=== PATIENT | male | born 1930 | race Caucasian/White ===

== ENCOUNTER 2016-06-08 10:17 | Inpatient (IN) | payer MEDICARE, OTHER ==
[~2016-06-08] VITALS: Ht 177.8 cm; Wt 90.3 kg
[~2016-06-08 10:17] MED LIST: ASPI-650 PO; ATOR10TA9 PO; ATOR40TA PO; ATOR40TA78 PO; CELE200C PO; CIPR2.5D EACHEYE; CYCL1DRO EACHEYE; FINA5TAB4 PO; HYDR-3138 PO; LATA2.5D3 EACHEYE; MELA5TAB PO; METF500T4 PO; TAMS-11 PO; TAMS0.4C2 PO; [UNRECOGNIZED DRUG - OTHER] PO
[2016-06-08] MEDS ORDERED: METF500T4 PO ×2 (10:40)
[2016-06-08] MEDS ORDERED: SODIUM CHLORIDE 0.9% 1,000 ML IV ONE (10:46)
[2016-06-08 11:20] LABS: HEMOGLOBIN 14.4 g/dL (13.7-18.0)
[2016-06-08 11:33] LABS: ASPARTATE AMINO TRANSFERASE 18 U/L (15-37); BLOOD UREA NITROGEN 10 mg/dL (7-18)
[2016-06-08] MEDS ORDERED: CEFTRIAXONE PMX 1GM/50ML 50 ML ONE (12:53)
[2016-06-08] MEDS ORDERED: CEFTRIAXONE PMX 1GM/50ML 50 ML IV ONE (13:00)
[2016-06-08] MEDS ORDERED: MORPHINE SULFATE 4 MG/ML, 1ML IVPush PRN (14:30)
[2016-06-08] MEDS ORDERED: CEFTRIAXONE PMX 1GM/50ML 50 ML IV SCH (14:30)
[2016-06-08] MEDS ORDERED: ONDANSETRON 2MG/ML, 2ML IVP PRN (14:30)
[2016-06-08] MEDS ORDERED: ENALAPRILAT 1.25 MG/ML, 2ML IVPush PRN (14:30)
[2016-06-08] MEDS ORDERED: HYDROcodone/APAP 5/325 TABLET PO PRN (14:30)
[2016-06-08] MEDS ORDERED: GUAIFENESIN/DM 200-20MG, 10ML UDC PO PRN (14:30)
[2016-06-08 15:12] VITALS: BP 139/76
[2016-06-08 15:12] LABS: IS PT STATUS REG ER OR PRE ER? NO
[2016-06-08] MEDS: SODIUM CHLORIDE 0.9% 1,000 ML IV SCH (16:08)
[2016-06-08] MEDS: INSULIN REGULAR 100 UNITS/ML, 3ML VIAL SQ-INSULIN SCH ×2 (18:30→21:00)
[2016-06-08 20:11] VITALS: BP 123/56
[2016-06-08 20:41] LABS: IS PT STATUS REG ER OR PRE ER? NO
[2016-06-08] MEDS: FAMOTIDINE 20 MG TABLET PO SCH (20:52)
[2016-06-08] MEDS: ATORVASTATIN 40 MG TABLET PO SCH (20:52)
[2016-06-08] MEDS: MELATONIN 5 MG TABLET PO SCH (21:00)
[2016-06-08] MEDS: LATANOPROST OPHTH 0.005%, 2.5ML EACHEYE SCH (22:00)
[2016-06-09 03:05] VITALS: BP 136/61
[2016-06-09 05:47] LABS: HEMOGLOBIN 13.5 g/dL (13.7-18.0)
[2016-06-09 05:58] LABS: BLOOD UREA NITROGEN 7 mg/dL (7-18)
[2016-06-09 08:51] VITALS: BP 132/65
[2016-06-09] MEDS: INSULIN REGULAR 100 UNITS/ML, 3ML VIAL SQ-INSULIN SCH ×4 (08:58→19:57)
[2016-06-09] MEDS: TEMPLATE NON-FORMULARY MED. (Cyclosporine (Restasis) 1 DROP) EACHEYE SCH (09:00)
[2016-06-09] MEDS: MULTIVITAMIN 1 TABLET PO SCH (09:01)
[2016-06-09] MEDS: FAMOTIDINE 20 MG TABLET PO SCH ×2 (09:01→20:10)
[2016-06-09] MEDS: SENNA/DOCUSATE TABLET PO SCH (10:29)
[2016-06-09] MEDS: ACETAMINOPHEN 325 MG TABLET PO PRN (10:29)
[2016-06-09] MEDS ORDERED: LORazepam 2 MG/ML, 1ML IVPush ONE ×2 (11:30→17:00)
[2016-06-09] MEDS ORDERED: CEFTRIAXONE PMX 1GM/50ML 50 ML IV SCH (13:00)
[2016-06-09] MEDS: HALOPERIDOL 5 MG/ML IM PRN (14:14)
[2016-06-09] MEDS: MELATONIN 5 MG TABLET PO SCH (19:45)
[2016-06-09] MEDS: LATANOPROST OPHTH 0.005%, 2.5ML EACHEYE SCH (20:10)
[2016-06-09] MEDS: SODIUM CHLORIDE 0.9% 1,000 ML IV SCH (20:10)
[2016-06-09] MEDS: ATORVASTATIN 40 MG TABLET PO SCH (20:10)
[2016-06-09 20:58] VITALS: BP 156/89
[2016-06-10 02:58] VITALS: BP 160/87
[2016-06-10 06:29] LABS: HEMOGLOBIN 13.8 g/dL (13.7-18.0)
[2016-06-10 06:38] LABS: BLOOD UREA NITROGEN 7 mg/dL (7-18)
[2016-06-10 06:40] VITALS: BP 159/77
[2016-06-10] MEDS: INSULIN REGULAR 100 UNITS/ML, 3ML VIAL SQ-INSULIN SCH ×4 (07:59→22:04)
[2016-06-10] MEDS: FAMOTIDINE 20 MG TABLET PO SCH ×2 (07:59→21:54)
[2016-06-10] MEDS: MULTIVITAMIN 1 TABLET PO SCH (07:59)
[2016-06-10] MEDS: SODIUM CHLORIDE 0.9% 1,000 ML IV SCH (08:00)
[2016-06-10] MEDS: SENNA/DOCUSATE TABLET PO SCH (08:00)
[2016-06-10] MEDS: TEMPLATE NON-FORMULARY MED. (Cyclosporine (Restasis) 1 DROP) EACHEYE SCH (08:00)
[2016-06-10] MEDS: LORazepam 2 MG/ML, 1ML IVPush PRN ×2 (09:56→13:50)
[2016-06-10] MEDS ORDERED: CEFTRIAXONE PMX 1GM/50ML 50 ML IV SCH (10:00)
[2016-06-10] MEDS ORDERED: PHARMACOKINETIC MONITORING MC PRN (11:30)
[2016-06-10] MEDS ORDERED: VANCOMYCIN PER PHARMACY MC PRN (11:30)
[2016-06-10] MEDS ORDERED: VANCOMYCIN 1,700 MG in SODIUM CHLORIDE 0.9% 250 ML IV SCH (11:30)
[2016-06-10 14:21] VITALS: BP 139/81
[2016-06-10] MEDS: HALOPERIDOL 5 MG/ML IM PRN ×2 (14:35→23:43)
[2016-06-10] MEDS: CEFTAROLINE 600 MG in SODIUM CHLORIDE 0.9% 100 ML IV SCH (15:18)
[2016-06-10 19:16] VITALS: BP 131/60
[2016-06-10] MEDS: LATANOPROST OPHTH 0.005%, 2.5ML EACHEYE SCH (21:00)
[2016-06-10] MEDS: MELATONIN 5 MG TABLET PO SCH (21:54)
[2016-06-10] MEDS: ATORVASTATIN 40 MG TABLET PO SCH (21:54)
[2016-06-11] MEDS: CEFTAROLINE 600 MG in SODIUM CHLORIDE 0.9% 100 ML IV SCH ×2 (03:56→15:00)
[2016-06-11 04:29] VITALS: BP 171/78
[2016-06-11 05:35] LABS: BLOOD UREA NITROGEN 8 mg/dL (7-18)
[2016-06-11 05:38] VITALS: BP 165/76
[2016-06-11 08:58] VITALS: BP 161/83
[2016-06-11] MEDS: TEMPLATE NON-FORMULARY MED. (Cyclosporine (Restasis) 1 DROP) EACHEYE SCH (09:00)
[2016-06-11] MEDS: INSULIN REGULAR 100 UNITS/ML, 3ML VIAL SQ-INSULIN SCH ×2 (09:20→11:56)
[2016-06-11] MEDS: FAMOTIDINE 20 MG TABLET PO SCH (09:21)
[2016-06-11] MEDS: SENNA/DOCUSATE TABLET PO SCH (09:21)
[2016-06-11] MEDS: MULTIVITAMIN 1 TABLET PO SCH (09:21)
[2016-06-11] MEDS ORDERED: ASPIRIN 325 MG TABLET EC PO SCH (10:00)
[2016-06-11] MEDS ORDERED: ENOXAPARIN 40 MG/0.4 ML SQ SCH (10:00)
[2016-06-11] MEDS ORDERED: ACET325T14 PO (12:42)
[2016-06-11] MEDS ORDERED: FAMO20TA7 PO (12:42)
[2016-06-11] MEDS ORDERED: CEFT600V IV (12:42)
[2016-06-11] MEDS ORDERED: HALO5VIA2 IM (12:42)
[2016-06-11] MEDS ORDERED: GUAI5SYR PO (12:42)
[2016-06-11] MEDS ORDERED: ENOX40SY4 SQ (12:42)
[2016-06-11] MEDS ORDERED: INSU100V5 SQ-INSULIN (12:42)
[2016-06-11] MEDS: ACETAMINOPHEN 325 MG TABLET PO PRN (14:11)
[2016-06-11 14:44] VITALS: BP 171/88
== END 2016-06-11 18:19 | DRG 871 ==
LOC: ED 11:04 → EDIP 12:29 → 4EST 15:03 → 4WST 06-10 11:43
PROVIDERS: ADMIT Internal Medicine; ATTEND Internal Medicine
PROC: 0T9B70Z Drainage of Bladder with Drainage Device, Via Natural or Artificial Opening (ICD-10-PCS; principal; 2016-06-08)
DX: A41.9 Sepsis, unspecified organism (principal); G93.41 Metabolic encephalopathy; E87.2 Acidosis; N39.0 Urinary tract infection, site not specified; E78.5 Hyperlipidemia, unspecified; E11.9 Type 2 diabetes mellitus without complications; H35.30 Unspecified macular degeneration; H40.9 Unspecified glaucoma; N31.9 Neuromuscular dysfunction of bladder, unspecified; Z66 Do not resuscitate; B95.62 Methicillin resistant Staphylococcus aureus infection as the cause of diseases classified elsewhere; I10 Essential (primary) hypertension; D35.2 Benign neoplasm of pituitary gland; F03.90 Unspecified dementia, unspecified severity, without behavioral disturbance, psychotic disturbance, mood disturbance, and anxiety; B96.1 Klebsiella pneumoniae [K. pneumoniae] as the cause of diseases classified elsewhere; Z86.73 Personal history of transient ischemic attack (TIA), and cerebral infarction without residual deficits; Z87.891 Personal history of nicotine dependence; Z87.01 Personal history of pneumonia (recurrent)
CPT/HCPCS: 36415; 70450; 70551; 71010; 80048; 80053; 80061; 81001; 82607; 82962; 83036; 83605; 83735; 84145; 84443; 84484; 85025; 85610; 87040; 87077; 87086; 87186; 93005; 96361; 96365; 96366; J0696; J0712; J1650; J1815; J1630; J2060; J7030

== ENCOUNTER 2016-07-03 23:39 | Emergency (ER) | payer MEDICARE, OTHER ==
[~2016-07-03] VITALS: Ht 180.3 cm; Wt 85.0 kg
[~2016-07-03 23:39] MED LIST changes: +ACET325T14 PO; +CEFT600V IV; +ENOX40SY4 SQ; +FAMO20TA7 PO; +GUAI5SYR PO; +HALO5VIA2 IM; +INSU100V5 SQ-INSULIN
[2016-07-03 23:41] VITALS: BP 125/71
[2016-07-03] MEDS ORDERED: LIDOCAINE 1%, 20ML ONE (23:50)
[2016-07-04] MEDS ORDERED: BACITRACIN ZINC OINT 500U/GM, 0.9 GM ONE (00:17)
== END 2016-07-04 00:47 | disposition home or self-care (01) ==
LOC: ED 23:59
DX: S01.01XA Laceration without foreign body of scalp, initial encounter (principal); E78.5 Hyperlipidemia, unspecified; W19.XXXA Unspecified fall, initial encounter; Y93.89 Activity, other specified; Y92.009 Unspecified place in unspecified non-institutional (private) residence as the place of occurrence of the external cause; Y99.8 Other external cause status; Z87.891 Personal history of nicotine dependence
CPT/HCPCS: 12001